=== PATIENT | female | born 1965 | race Hispanic/Latino ===

== ENCOUNTER 2023-05-16 12:11 | Inpatient (IN) | payer BC ==
[~2023-05-16] VITALS: Ht 157.5 cm; Wt 82.0 kg
[2023-05-16 14:23] LABS: APPEARANCE,URINE CLOUDY (CLEAR); BILIRUBIN,URINE NEGATIVE (NEGATIVE); COLOR,URINE YELLOW (YELLOW); GLUCOSE, URINE (UA) 50 mg/dL (NEGATIVE); KETONES,URINE NEGATIVE (NEGATIVE); LEUKOCYTE ESTERASE ,URINE 500 Leu/uL (NEGATIVE); NITRATE,URINE NEGATIVE (NEGATIVE); OCCULT BLOOD,URINE SMALL (NEGATIVE); PROTEIN,URINE 30 mg/dL (NEGATIVE)
[2023-05-16 14:25] LABS: ADD UA MICROSCOPIC YES
[2023-05-16 14:28] LABS: BASOPHILS # (AUTO) 0.03 K/uL (0.00-0.20); BASOPHILS % (AUTO) 0.2 % (0.0-5.0); EOSINOPHILS # (AUTO) 0.01 K/uL (0.00-0.70); EOSINOPHILS % (AUTO) 0.1 % (0.0-8.0); HEMATOCRIT 33.3 % (36-48); IMMATURE GRANULOCYTE ABSOLUTE 0.21 K/uL (0-1); LYMPHOCYTES # (AUTO) 1.5 K/uL (1.0-4.8); LYMPHOCYTES % (AUTO) 9.9 % (21.0-51.0); MEAN CORPUSCULAR HEMOGLOBIN 30.8 pg (27.0-33.0); MEAN CORPUSCULAR HGB CONC 34.8 g/dL (32.0-36.0); MEAN CORPUSCULAR VOLUME 88.3 fL (79-99); MONOCYTES # (AUTO) 0.7 K/uL (0.1-1.0); MONOCYTES % (AUTO) 4.9 % (3.0-13.0); NEUTROPHILS # (AUTO) 12.3 K/uL (1.8-7.7); NEUTROPHILS % (AUTO) 83.5 % (40.0-77.0); PLATELET COUNT (AUTO) 173 K/uL (130-400); RED BLOOD CELL COUNT(AUTO) 3.77 MIL/uL (4.00-5.50); RED CELL DISTRIBUTION WIDTH 12.6 % (11.0-15.5); WHITE BLOOD COUNT (AUTO) 14.7 K/uL (4.8-10.8)
[2023-05-16 14:30] LABS: BACTERIA,URINE MOD /HPF (None Seen); MUCUS,URINE FEW LPF (None Seen); SQUAMOUS EPITHELIAL CELL,UR MANY /HPF (0-2); WBC CLUMP FEW /HPF (0-1); WBC,URINE 51-100 /HPF (0-1)
[2023-05-16 14:54] LABS: CREATININE 1.3 mg/dL (0.5-1.5); TOTAL PROTEIN, SERUM 7.4 g/dL (6.0-8.3)
[2023-05-16] MEDS ORDERED: POTASSIUM BICARB/CIT AC 25 MEQ TABLET.EFF PO ONE (15:30)
[2023-05-16] MEDS ORDERED: CEFTRIAXONE 1G VIAL IVPB ONE (15:30)
[2023-05-16] MEDS ORDERED: 0.9%NACL 1000ML 1,000 ML IV ONE (15:30)
[2023-05-16] MEDS ORDERED: ACETAMINOPHEN 325 MG TAB PO PRN ×2 (17:00→23:00)
[2023-05-16] MEDS: ZOSYN 3.375GM +NS 50ML IV SCH ×2 (17:33→23:48)
[2023-05-16] MEDS: HEPARIN 5,000 UNIT VIAL SQ SCH (17:34)
[2023-05-16] MEDS ORDERED: ONDANSETRON 4MG INJ ONE (17:46)
[2023-05-16] MEDS: INSULIN HUMULIN R 100 UNIT/ML 3ML SQ SCH (20:46)
[2023-05-16 22:10] VITALS: BP 123/73; PULSE 101; RESP 18
[2023-05-16] MEDS ORDERED: NAPR-1023 PO (22:24)
[2023-05-16] MEDS ORDERED: LISI10TA24 PO (22:24)
[2023-05-16] MEDS ORDERED: IBAN150T21 PO (22:24)
[2023-05-16] MEDS ORDERED: OMEP20CA12 PO (22:24)
[2023-05-16] MEDS ORDERED: ATOR10TA69 PO (22:24)
[2023-05-16] MEDS ORDERED: SEMA14TA2 PO (22:24)
[2023-05-16] MEDS: 0.9%NACL 1000ML 1,000 ML IV SCH (23:48)
[2023-05-17] VITALS (7 sets, daily range): BP systolic 96–118; BP diastolic 47–77; PULSE 77–98; RESP 18; O2SAT 94–96
[2023-05-17 04:29] LABS: BASOPHILS # (AUTO) 0.02 K/uL (0.00-0.20); BASOPHILS % (AUTO) 0.2 % (0.0-5.0); EOSINOPHILS # (AUTO) 0.04 K/uL (0.00-0.70); EOSINOPHILS % (AUTO) 0.4 % (0.0-8.0); LYMPHOCYTES # (AUTO) 1.3 K/uL (1.0-4.8); LYMPHOCYTES % (AUTO) 13.7 % (21.0-51.0); MEAN CORPUSCULAR HEMOGLOBIN 31.3 pg (27.0-33.0); MEAN CORPUSCULAR HGB CONC 34.3 g/dL (32.0-36.0); MEAN CORPUSCULAR VOLUME 91.2 fL (79-99); MONOCYTES # (AUTO) 0.7 K/uL (0.1-1.0); MONOCYTES % (AUTO) 7.6 % (3.0-13.0); NEUTROPHILS # (AUTO) 7.4 K/uL (1.8-7.7); NEUTROPHILS % (AUTO) 77.1 % (40.0-77.0); PLATELET COUNT (AUTO) 144 K/uL (130-400); RED BLOOD CELL COUNT(AUTO) 3.29 MIL/uL (4.00-5.50); RED CELL DISTRIBUTION WIDTH 12.8 % (11.0-15.5); WHITE BLOOD COUNT (AUTO) 9.6 K/uL (4.8-10.8)
[2023-05-17 04:43] LABS: HEMOGLOBIN A1C 10.4 % (4.0-6.0)
[2023-05-17 04:46] LABS: ALBUMIN 1.6 g/dL (3.5-5.0); CREATININE 1.1 mg/dL (0.5-1.5); MAGNESIUM 1.9 mg/dL (1.80-2.40); POTASSIUM 3.1 mmol/L (3.5-5.1); TOTAL PROTEIN, SERUM 6.1 g/dL (6.0-8.3)
[2023-05-17] MEDS ORDERED: KCL 20 MEQ ERTAB PO PRN (06:00)
[2023-05-17] MEDS ORDERED: POTASSIUM CHLORIDE 20MEQ/100ML 100 ML IV PRN (06:00)
[2023-05-17] MEDS: POTASSIUM CHLORIDE 10% ELIXIR 20 MEQ/15 ML UDCUP PO PRN ×2 (06:02→09:51)
[2023-05-17] MEDS: HEPARIN 5,000 UNIT VIAL SQ SCH ×2 (06:04→18:08)
[2023-05-17] MEDS: INSULIN HUMULIN R 100 UNIT/ML 3ML SQ SCH ×4 (06:06→20:29)
[2023-05-17] MEDS: ZOSYN 3.375GM +NS 50ML IV SCH ×2 (09:51→18:07)
[2023-05-17] MEDS: 0.9%NACL 1000ML 1,000 ML IV SCH (12:20)
[2023-05-17] MEDS: LACTULOSE 20 GM/30 ML UDCUP PO PRN (14:49)
[2023-05-17] MEDS: ATORVASTATIN 10 MG TABLET PO SCH (20:02)
[2023-05-17] MEDS: NAPROXEN 500 MG TABLET PO SCH (20:03)
[2023-05-18] VITALS (8 sets, daily range): BP systolic 110–132; BP diastolic 51–75; PULSE 75–93; RESP 14–22; O2SAT 96–97
[2023-05-18] MEDS: 0.9%NACL 1000ML 1,000 ML IV SCH ×2 (00:57→14:41)
[2023-05-18] MEDS: ZOSYN 3.375GM +NS 50ML IV SCH ×3 (00:57→17:17)
[2023-05-18] MEDS: HEPARIN 5,000 UNIT VIAL SQ SCH ×2 (05:01→17:19)
[2023-05-18] MEDS: INSULIN HUMULIN R 100 UNIT/ML 3ML SQ SCH ×4 (05:41→19:37)
[2023-05-18] MEDS ORDERED: NON-FORMULARY MEDICATION 1 EACH (Omeprazole 20 MG) PO SCH (07:30)
[2023-05-18] MEDS: LISINOPRIL 10 MG TABLET PO SCH (09:00)
[2023-05-18] MEDS: NAPROXEN 500 MG TABLET PO SCH ×2 (09:09→19:07)
[2023-05-18] MEDS: PANTOPRAZOLE 40 MG TAB DR PO SCH (09:10)
[2023-05-18] MEDS: RYBELSUS PO SCH (09:11)
[2023-05-18] MEDS: ATORVASTATIN 10 MG TABLET PO SCH (19:07)
[2023-05-19] VITALS (7 sets, daily range): BP systolic 110–138; BP diastolic 66–87; PULSE 87–95; RESP 16–20; O2SAT 96–97
[2023-05-19] MEDS: ZOSYN 3.375GM +NS 50ML IV SCH ×3 (00:33→17:18)
[2023-05-19] MEDS: 0.9%NACL 1000ML 1,000 ML IV SCH ×2 (00:34→17:40)
[2023-05-19] MEDS: HEPARIN 5,000 UNIT VIAL SQ SCH ×2 (04:37→17:27)
[2023-05-19] MEDS: LACTULOSE 20 GM/30 ML UDCUP PO PRN ×2 (04:39→18:29)
[2023-05-19] MEDS: INSULIN HUMULIN R 100 UNIT/ML 3ML SQ SCH ×4 (06:19→19:47)
[2023-05-19] MEDS: NAPROXEN 500 MG TABLET PO SCH ×2 (08:47→19:46)
[2023-05-19] MEDS: PANTOPRAZOLE 40 MG TAB DR PO SCH (08:47)
[2023-05-19] MEDS: LISINOPRIL 10 MG TABLET PO SCH (08:48)
[2023-05-19] MEDS: RYBELSUS PO SCH (08:48)
[2023-05-19] MEDS: ATORVASTATIN 10 MG TABLET PO SCH (19:46)
[2023-05-20] MEDS: ZOSYN 3.375GM +NS 50ML IV SCH ×2 (01:00→10:36)
[2023-05-20 03:00] VITALS: BP 126/76; PULSE 114; RESP 18
[2023-05-20] MEDS: HEPARIN 5,000 UNIT VIAL SQ SCH (04:44)
[2023-05-20] MEDS: INSULIN HUMULIN R 100 UNIT/ML 3ML SQ SCH ×2 (05:36→12:41)
[2023-05-20 05:49] LABS: INR 1.05 (0.85-1.15); PARTIAL THROMBOPLASTIN TIME 26.2 SEC (26.3-35.5); PROTHROMBIN TIME 11.3 SEC (9.6-11.6)
[2023-05-20 08:00] VITALS: BP 116/77; PULSE 91; RESP 18
[2023-05-20 08:45] VITALS: O2SAT 97
[2023-05-20] MEDS ORDERED: 0.9%NACL 10ML VIAL IV SCH (09:00)
[2023-05-20] MEDS: RYBELSUS PO SCH (09:00)
[2023-05-20] MEDS: NAPROXEN 500 MG TABLET PO SCH (10:39)
[2023-05-20] MEDS: PANTOPRAZOLE 40 MG TAB DR PO SCH (10:40)
[2023-05-20] MEDS: LISINOPRIL 10 MG TABLET PO SCH (10:40)
[2023-05-20 12:00] VITALS: BP 131/84; PULSE 87; RESP 18
[2023-05-20 13:00] LABS: ALBUMIN 1.7 g/dL (3.5-5.0); BILIRUBIN,TOTAL 0.3 mg/dL (0.2-1.0); CREATININE 0.6 mg/dL (0.5-1.5); POTASSIUM 3.2 mmol/L (3.5-5.1); TOTAL PROTEIN, SERUM 6.3 g/dL (6.0-8.3)
[2023-06-16] MEDS ORDERED: IBANDRONATE SODIUM PO SCH (09:00)
== END 2023-05-20 16:20 | disposition home or self-care (01) | DRG 872 ==
LOC: EDH 12:11 → EDHIP 16:42 → 3CH 21:50
PROVIDERS: ADMIT Internal Medicine Infectious Disease; ATTEND Internal Medicine Infectious Disease
PROC: 02HV33Z Insertion of Infusion Device into Superior Vena Cava, Percutaneous Approach (ICD-10-PCS; principal; 2023-05-19)
DX: A41.51 Sepsis due to Escherichia coli [E. coli] (principal); N12 Tubulo-interstitial nephritis, not specified as acute or chronic; Z16.24 Resistance to multiple antibiotics; E87.1 Hypo-osmolality and hyponatremia; E87.6 Hypokalemia; E11.65 Type 2 diabetes mellitus with hyperglycemia; E66.9 Obesity, unspecified; E78.00 Pure hypercholesterolemia, unspecified; I10 Essential (primary) hypertension; Z83.3 Family history of diabetes mellitus; Z68.33 Body mass index [BMI] 33.0-33.9, adult
CPT/HCPCS: 36415; 36569; 71045; 74176; 80053; 81001; 82306; 82948; 83036; 83605; 83690; 83735; 85025; 85610; 85730; 87077; 87088; 87186; C1894; G0378; J0696; J1644; J1815; J2405; J2543; J7030